=== PATIENT | female | born 1945 | race Caucasian/White ===

== ENCOUNTER → 2017-04-10 | Outpatient (CLI) | payer OTHER ==
--- NOTE | 2017-04-13 13:30 | MG ---
HISTORY: SCREENING Comparison: March 15, 2012 and April 05, 2016 FINDINGS: Bilateral CC and MLO projections of the right and left breast were obtained. Scattered fibroglandula r tissue is seen to be present without significant interval change. No suspicious architectural dist ortion, mass or clustered microcalcifications can be observed to suggest malignancy. No skin thicken ing or nipple retraction is appreciated. No pathological lymphadenopathy can be identified. Benign- appearing calcifications are noted within the right and left breast. IMPRESSION: NO RADIOGRAPHIC EVIDENCE OF MALIGNANCY. ACR CATEGORY 2 - benign findings. FOLLOW-UP EXAM 1 YEAR. Diagnostic CAD was utilized and reviewed. * 0 (ZERO) - ASSESSMENT INCOMPLETE; ADDITIONAL IMAGING IS NEEDED. * 1/1 (ONE) - NEGATIVE. * 2/II (TWO) - BENIGN FINDINGS. * 3/III (THREE) - PROBABLY BENIGN FINDING; SHORT INTERVAL FOLLOW-UP SUGGESTED. * 4/IV (FOUR) - SUSPICIOUS ABNORMALITY; BIOPSY SHOULD BE CONSIDERED. * 5/V - HIGHLY SUSPICIOUS OF MALIGNANCY; BIOPSY SHOULD BE PERFORMED. A NEGATIVE X-RAY REPORT SHOULD NOT DELAY BIOPSY IF A DOMINANT OR CLINICALLY SUSPICIOUS MASS IS PRESENT; 4 TO 8 PERCENT OF CANCERS ARE NOT IDENTIFIED BY X-RAY. A NEGA TIVE REPORT MAY REINFORCE THE CLINICAL IMPRESSION. ADENOSIS AND DENSE BREASTS MAY OBSCURE AN UNDERLY ING NEOPLASM. Reported By:
== END ==
LOC: RAD 10:40
PROVIDERS: ATTEND Obstetrics & Gynecology Obstetrics
DX: Z12.31 Encounter for screening mammogram for malignant neoplasm of breast (principal)
CPT/HCPCS: 77067

== ENCOUNTER 2022-12-06 16:57 | Inpatient (IN) ==
[2022-12-06] MEDS ORDERED: ROCEPHIN VIAL 1 GRAM 1 G in NS 100 ML IV 100 ML IV SCH (17:39)
[2022-12-06] MEDS ORDERED: NS 1,000 ML IV 1,000 ML IV ONE (17:39)
[2022-12-06 18:22] LABS: BASOPHILS # (AUTO) 0.1 X10^3/uL (0.0-0.1); BASOPHILS % (AUTO) 0.3 % (0.2-1.0); EOSINOPHILS % (AUTO) 0.1 % (0.9-2.9); HEMATOCRIT 37.6 % (36.0-47.0); HEMOGLOBIN 12.9 g/dL (12.0-16.0); LYMPHOCYTES # (AUTO) 1.5 X10^3/uL (1.3-2.9); LYMPHOCYTES % (AUTO) 8.2 % (21.0-51.0); MEAN CORPUSCULAR HEMOGLOBIN 31.8 pg (27.0-34.0); MEAN CORPUSCULAR HGB CONC 34.2 g/dL (33.0-35.0); MEAN CORPUSCULAR VOLUME 92.9 fL (80.0-100.0); MEAN PLATELET VOLUME 8.8 fL (7.4-11.0); MONOCYTES # (AUTO) 2.2 x10^3/uL (0.3-0.8); MONOCYTES % (AUTO) 12.2 % (0.0-13.0); NEUTROPHILS % (AUTO) 79.2 % (42.0-75.0); PLATELET COUNT 343 X10^3/uL (150.0-450.0); RED BLOOD COUNT 4.05 X10^6/uL (3.5-5.4); RED CELL DISTRIBUTION WIDTH 12.5 % (11.6-16.5); WHITE BLOOD COUNT 17.7 X10^3/uL (3.6-10.0)
[2022-12-06 18:28] LABS: BILIRUBIN,URINE 1+ (NEGATIVE); BLOOD/HEMOGLOBIN,URINE 1+ (NEGATIVE); GLUCOSE, URINE NEGATIVE (NEGATIVE); KETONES,URINE 4+ (NEGATIVE); LEUKOCYTE ESTERASE ,URINE 1+ (NEGATIVE); NITRITES,URINE NEGATIVE (NEGATIVE); PROTEIN,URINE 3+ (NEGATIVE); UROBILINOGEN,URINE 1+ (NORMAL)
[2022-12-06 18:32] LABS: ALBUMIN 2.7 g/dL (3.4-5.0); CALCIUM 9.3 mg/dL (8.5-10.1); CARBON DIOXIDE 26.3 mmol/L (21-32); COR CA(FOR HYPOALB) 10.3 mg/dL (8.5-10.1); CREATININE 1.15 mg/dL (0.55-1.02); POTASSIUM 4.2 mmol/L (3.5-5.1); TOTAL PROTEIN 7.7 g/dL (6.4-8.2)
[2022-12-06 18:37] LABS: APPEARANCE,URINE HAZY (CLEAR); BACTERIA,URINE TRACE /HPF (NEGATIVE); COLOR,URINE AMBER (YELLOW); RBC,URINE 0-2 /HPF (0-3); SQUAMOUS EPITHELIAL CELL,UR FEW /HPF (NEGATIVE)
[2022-12-06 18:38] LABS: GRANULAR CASTS,URINE MANY /LPF (NEGATIVE); HYALINE CASTS, URINE MODERATE /LPF (NEGATIVE)
[2022-12-06] MEDS ORDERED: NovoLIN R (or HumuLIN R) SUBCUT PRN (19:23)
[2022-12-06] MEDS: SNACK - Diabetic Appropriate PO SCH (19:47)
[2022-12-06] MEDS: ROCEPHIN VIAL 1 GRAM 1 G in NS 100 ML IV 100 ML IV SCH (20:43)
[2022-12-06] MEDS: NS 1,000 ML IV 1,000 ML IV SCH (20:43)
[2022-12-06] MEDS: GLUCOPHAGE XR 24-HR PO SCH (20:43)
[2022-12-06] MEDS: LOPRESSOR TAB 25 MG PO SCH (20:43)
[2022-12-07] MEDS: NS 1,000 ML IV 1,000 ML IV SCH ×4 (02:00→18:04)
[2022-12-07 05:38] LABS: BASOPHILS # (AUTO) 0.1 X10^3/uL (0.0-0.1); BASOPHILS % (AUTO) 0.6 % (0.2-1.0); EOSINOPHILS % (AUTO) 0.3 % (0.9-2.9); HEMATOCRIT 31.6 % (36.0-47.0); HEMOGLOBIN 10.9 g/dL (12.0-16.0); MEAN CORPUSCULAR HEMOGLOBIN 31.8 pg (27.0-34.0); MEAN CORPUSCULAR HGB CONC 34.5 g/dL (33.0-35.0); MEAN CORPUSCULAR VOLUME 92.1 fL (80.0-100.0); MEAN PLATELET VOLUME 8.7 fL (7.4-11.0); MONOCYTES # (AUTO) 2.2 x10^3/uL (0.3-0.8); MONOCYTES % (AUTO) 14.5 % (0.0-13.0); NEUTROPHILS # (AUTO) 10.7 x10^3/uL (2.2-4.8); NEUTROPHILS % (AUTO) 71.6 % (42.0-75.0); PLATELET COUNT 316 X10^3/uL (150.0-450.0); RED BLOOD COUNT 3.43 X10^6/uL (3.5-5.4); RED CELL DISTRIBUTION WIDTH 12.9 % (11.6-16.5)
[2022-12-07 05:46] LABS: ALANINE AMINOTRANSFERASE 16 Units/L (12-78); ALKALINE PHOSPHATASE 63 Units/L (46-116); ASPARTATE AMINO TRANSFERASE 17 Units/L (15-37); BLOOD UREA NITROGEN 12 mg/dL (7-18); CALCIUM 8.1 mg/dL (8.5-10.1); CARBON DIOXIDE 26.3 mmol/L (21-32); CHLORIDE 99 mmol/L (98-107); COR CA(FOR HYPOALB) 9.7 mg/dL (8.5-10.1); COR NA(FOR HYPERGLY) 134 mmol/L (136-145); CREATININE 0.84 mg/dL (0.55-1.02); GLUCOSE 117 mg/dL (65-99); POTASSIUM 3.9 mmol/L (3.5-5.1); SODIUM 134 mmol/L (136-145); TOTAL PROTEIN 6.2 g/dL (6.4-8.2); eGFR NON BLACK RACES > 60 (>60)
[2022-12-07] MEDS: ZYLOPRIM PO SCH (09:48)
[2022-12-07] MEDS: GLUCOPHAGE XR 24-HR PO SCH ×2 (09:49→21:57)
[2022-12-07] MEDS: ASPIRIN EC 81 MG PO SCH (09:49)
[2022-12-07] MEDS: LOPRESSOR TAB 25 MG PO SCH ×2 (09:49→21:57)
[2022-12-07] MEDS: LOVENOX INJ 40 MG SYR SC SCH (09:50)
[2022-12-07] MEDS: SNACK - Diabetic Appropriate PO SCH (19:58)
[2022-12-07] MEDS: ROCEPHIN VIAL 1 GRAM 1 G in NS 100 ML IV 100 ML IV SCH (21:57)
[2022-12-08] MEDS: NS 1,000 ML IV 1,000 ML IV SCH ×3 (03:06→22:14)
[2022-12-08 05:48] LABS: BASOPHILS # (AUTO) 0.2 X10^3/uL (0.0-0.1); BASOPHILS % (AUTO) 1.2 % (0.2-1.0); EOSINOPHILS % (AUTO) 0.1 % (0.9-2.9); HEMATOCRIT 32.2 % (36.0-47.0); HEMOGLOBIN 10.9 g/dL (12.0-16.0); LYMPHOCYTES # (AUTO) 1.7 X10^3/uL (1.3-2.9); LYMPHOCYTES % (AUTO) 11.2 % (21.0-51.0); MEAN CORPUSCULAR HEMOGLOBIN 31.7 pg (27.0-34.0); MEAN CORPUSCULAR VOLUME 93.3 fL (80.0-100.0); MEAN PLATELET VOLUME 9.4 fL (7.4-11.0); MONOCYTES # (AUTO) 2.1 x10^3/uL (0.3-0.8); MONOCYTES % (AUTO) 13.9 % (0.0-13.0); NEUTROPHILS # (AUTO) 10.9 x10^3/uL (2.2-4.8); NEUTROPHILS % (AUTO) 73.6 % (42.0-75.0); PLATELET COUNT 366 X10^3/uL (150.0-450.0); RED BLOOD COUNT 3.45 X10^6/uL (3.5-5.4); RED CELL DISTRIBUTION WIDTH 12.9 % (11.6-16.5); WHITE BLOOD COUNT 14.8 X10^3/uL (3.6-10.0)
[2022-12-08 06:06] LABS: ALANINE AMINOTRANSFERASE 22 Units/L (12-78); ALBUMIN 1.7 g/dL (3.4-5.0); ALKALINE PHOSPHATASE 81 Units/L (46-116); ASPARTATE AMINO TRANSFERASE 34 Units/L (15-37); BLOOD UREA NITROGEN 13 mg/dL (7-18); CALCIUM 7.9 mg/dL (8.5-10.1); CARBON DIOXIDE 24.1 mmol/L (21-32); CHLORIDE 100 mmol/L (98-107); COR CA(FOR HYPOALB) 9.7 mg/dL (8.5-10.1); CREATININE 0.92 mg/dL (0.55-1.02); GLUCOSE 102 mg/dL (65-99); POTASSIUM 3.8 mmol/L (3.5-5.1); SODIUM 135 mmol/L (136-145); TOTAL PROTEIN 6.2 g/dL (6.4-8.2); eGFR NON BLACK RACES > 60 (>60)
[2022-12-08] MEDS ORDERED: CONSULT PHARMACY - POTASSIUM & MAGNESIUM XX SCH (07:00)
[2022-12-08] MEDS: LOPRESSOR TAB 25 MG PO SCH ×2 (08:53→20:54)
[2022-12-08] MEDS: ASPIRIN EC 81 MG PO SCH (08:53)
[2022-12-08] MEDS: GLUCOPHAGE XR 24-HR PO SCH ×2 (08:53→20:53)
[2022-12-08] MEDS: ZYLOPRIM PO SCH (08:53)
[2022-12-08] MEDS: LOVENOX INJ 40 MG SYR SC SCH (08:54)
[2022-12-08] MEDS ORDERED: K-DUR TAB 20 MEQ PO SCH (09:00)
[2022-12-08] MEDS: MAG-OX TAB PO SCH ×2 (09:04→13:51)
[2022-12-08] MEDS ORDERED: TYLENOL 500 MG TAB EXTRA STRENGTH PO ONE (17:00)
[2022-12-08] MEDS ORDERED: PHARMACY CONSULT - VANCOMYCIN XX SCH (17:00)
[2022-12-08] MEDS ORDERED: VANCOMYCIN 1 GRAM PREMIX (ADDVANTAGE) 250 ML IV SCH (18:00)
[2022-12-08] MEDS ORDERED: VANCOMYCIN IV *PREMIX 1 G/200 ML BAG 1 G/200 ML PIGGYBACK IV ONE (18:22)
[2022-12-08] MEDS: SNACK - Diabetic Appropriate PO SCH (20:56)
--- NOTE | 2022-12-08 21:09 | RAD ---
HISTORYFEVERSTUDYCHEST, 1 [id number]/20/2023FINDINGSThe lungs are not well inflated. As a result, there are hypoventilatory changes.But I see no evidence for pneumonia or pleural effusion.Heart size is normal.Bones are unremarkable.IMPRESSION1. No significant abnormalityElectronically signed by: Ronny Chew (Dec 08, 2022 21:07:28)
[2022-12-08] MEDS: ROCEPHIN VIAL 1 GRAM 1 G in NS 100 ML IV 100 ML IV SCH (22:09)
[2022-12-09] MEDS: NS 1,000 ML IV 1,000 ML IV SCH ×3 (02:01→20:38)
[2022-12-09 05:43] LABS: BASOPHILS # (AUTO) 0.1 X10^3/uL (0.0-0.1); BASOPHILS % (AUTO) 0.6 % (0.2-1.0); EOSINOPHILS # (AUTO) 0.1 x10^3/uL (0.0-0.2); EOSINOPHILS % (AUTO) 0.8 % (0.9-2.9); HEMATOCRIT 30.3 % (36.0-47.0); HEMOGLOBIN 10.2 g/dL (12.0-16.0); LYMPHOCYTES # (AUTO) 1.6 X10^3/uL (1.3-2.9); MEAN CORPUSCULAR HEMOGLOBIN 31.2 pg (27.0-34.0); MEAN CORPUSCULAR HGB CONC 33.6 g/dL (33.0-35.0); MEAN CORPUSCULAR VOLUME 92.8 fL (80.0-100.0); MONOCYTES # (AUTO) 1.9 x10^3/uL (0.3-0.8); MONOCYTES % (AUTO) 12.3 % (0.0-13.0); NEUTROPHILS # (AUTO) 11.9 x10^3/uL (2.2-4.8); NEUTROPHILS % (AUTO) 76.3 % (42.0-75.0); PLATELET COUNT 386 X10^3/uL (150.0-450.0); RED BLOOD COUNT 3.27 X10^6/uL (3.5-5.4); RED CELL DISTRIBUTION WIDTH 12.8 % (11.6-16.5); WHITE BLOOD COUNT 15.7 X10^3/uL (3.6-10.0)
[2022-12-09 06:03] LABS: ALANINE AMINOTRANSFERASE 30 Units/L (12-78); ALBUMIN 1.6 g/dL (3.4-5.0); ALKALINE PHOSPHATASE 85 Units/L (46-116); ASPARTATE AMINO TRANSFERASE 34 Units/L (15-37); BLOOD UREA NITROGEN 10 mg/dL (7-18); CALCIUM 8.1 mg/dL (8.5-10.1); CARBON DIOXIDE 24.1 mmol/L (21-32); CHLORIDE 100 mmol/L (98-107); COR NA(FOR HYPERGLY) 134 mmol/L (136-145); CREATININE 0.78 mg/dL (0.55-1.02); GLUCOSE 120 mg/dL (65-99); SODIUM 134 mmol/L (136-145); eGFR NON BLACK RACES > 60 (>60)
[2022-12-09] MEDS: LOPRESSOR TAB 25 MG PO SCH (09:04)
[2022-12-09] MEDS: ZYLOPRIM PO SCH (09:04)
[2022-12-09] MEDS: ASPIRIN EC 81 MG PO SCH (09:04)
[2022-12-09] MEDS: LOVENOX INJ 40 MG SYR SC SCH (09:04)
[2022-12-09] MEDS: GLUCOPHAGE XR 24-HR PO SCH ×2 (09:04→20:25)
[2022-12-09] MEDS: VANCOMYCIN IV *PREMIX 1 G/200 ML BAG 1 G/200 ML PIGGYBACK IV SCH ×2 (09:07→20:25)
[2022-12-09] MEDS: MAG-OX TAB PO SCH ×2 (09:08→20:25)
[2022-12-09] MEDS ORDERED: ZYLOPRIM PO SCH (10:00)
[2022-12-09] MEDS ORDERED: GLUCOPHAGE XR 24-HR PO SCH (10:00)
[2022-12-09] MEDS ORDERED: ASPIRIN EC 81 MG PO SCH (10:00)
[2022-12-09] MEDS: LOPRESSOR TAB 50 MG PO SCH ×2 (11:14→20:25)
[2022-12-09] MEDS: ZESTRIL TAB 40 MG PO SCH (11:14)
[2022-12-09] MEDS: ZOSYN VIAL 3.375 GRAMS 3.375 G in NS 100 ML IV 100 ML IV SCH ×2 (11:15→21:36)
[2022-12-09] MEDS: SNACK - Diabetic Appropriate PO SCH (20:25)
[2022-12-10] MEDS: ZOSYN VIAL 3.375 GRAMS 3.375 G in NS 100 ML IV 100 ML IV SCH ×3 (05:05→22:00)
[2022-12-10] MEDS: NS 1,000 ML IV 1,000 ML IV SCH ×3 (05:05→20:49)
[2022-12-10 07:01] LABS: BASOPHILS # (AUTO) 0.1 X10^3/uL (0.0-0.1); BASOPHILS % (AUTO) 0.9 % (0.2-1.0); EOSINOPHILS # (AUTO) 0.3 x10^3/uL (0.0-0.2); EOSINOPHILS % (AUTO) 2.3 % (0.9-2.9); HEMATOCRIT 29.1 % (36.0-47.0); LYMPHOCYTES # (AUTO) 1.8 X10^3/uL (1.3-2.9); LYMPHOCYTES % (AUTO) 12.9 % (21.0-51.0); MEAN CORPUSCULAR HEMOGLOBIN 31.9 pg (27.0-34.0); MEAN CORPUSCULAR HGB CONC 34.4 g/dL (33.0-35.0); MEAN CORPUSCULAR VOLUME 92.8 fL (80.0-100.0); MEAN PLATELET VOLUME 8.8 fL (7.4-11.0); MONOCYTES # (AUTO) 1.5 x10^3/uL (0.3-0.8); MONOCYTES % (AUTO) 11.1 % (0.0-13.0); NEUTROPHILS % (AUTO) 72.8 % (42.0-75.0); PLATELET COUNT 439 X10^3/uL (150.0-450.0); RED BLOOD COUNT 3.14 X10^6/uL (3.5-5.4); RED CELL DISTRIBUTION WIDTH 12.7 % (11.6-16.5); WHITE BLOOD COUNT 13.7 X10^3/uL (3.6-10.0)
[2022-12-10 07:16] LABS: ALANINE AMINOTRANSFERASE 33 Units/L (12-78); ALBUMIN 1.5 g/dL (3.4-5.0); ALKALINE PHOSPHATASE 85 Units/L (46-116); ASPARTATE AMINO TRANSFERASE 36 Units/L (15-37); BLOOD UREA NITROGEN 12 mg/dL (7-18); CALCIUM 8.4 mg/dL (8.5-10.1); CARBON DIOXIDE 25.5 mmol/L (21-32); CHLORIDE 100 mmol/L (98-107); COR CA(FOR HYPOALB) 10.4 mg/dL (8.5-10.1); CREATININE 0.76 mg/dL (0.55-1.02); GLUCOSE 104 mg/dL (65-99); POTASSIUM 3.8 mmol/L (3.5-5.1); SODIUM 135 mmol/L (136-145); TOTAL PROTEIN 5.9 g/dL (6.4-8.2); eGFR NON BLACK RACES > 60 (>60)
[2022-12-10 07:19] LABS: CREATININE 0.7 mg/dL (0.55-1.02); VANCOMYCIN,TROUGH 11.2 ug/mL (15-20)
[2022-12-10] MEDS ORDERED: PHARMACY COMMENT IV NR (08:00)
[2022-12-10] MEDS: LOPRESSOR TAB 50 MG PO SCH ×2 (08:32→20:48)
[2022-12-10] MEDS: GLUCOPHAGE XR 24-HR PO SCH ×2 (08:32→20:47)
[2022-12-10] MEDS: LOVENOX INJ 40 MG SYR SC SCH (08:32)
[2022-12-10] MEDS: ZESTRIL TAB 40 MG PO SCH (08:32)
[2022-12-10] MEDS: ZYLOPRIM PO SCH (08:33)
[2022-12-10] MEDS: ASPIRIN EC 81 MG PO SCH (08:33)
[2022-12-10] MEDS: MAG-OX TAB PO SCH ×2 (08:33→20:49)
[2022-12-10] MEDS: VANCOMYCIN IV *PREMIX 1 G/200 ML BAG 1 G/200 ML PIGGYBACK IV SCH ×2 (08:48→20:48)
[2022-12-10] MEDS: SNACK - Diabetic Appropriate PO SCH (20:49)
[2022-12-11] MEDS: NS 1,000 ML IV 1,000 ML IV SCH ×3 (02:21→17:30)
[2022-12-11] MEDS: ZOSYN VIAL 3.375 GRAMS 3.375 G in NS 100 ML IV 100 ML IV SCH ×3 (05:42→21:19)
[2022-12-11 06:25] LABS: BASOPHILS # (AUTO) 0.1 X10^3/uL (0.0-0.1); EOSINOPHILS # (AUTO) 0.5 x10^3/uL (0.0-0.2); EOSINOPHILS % (AUTO) 3.8 % (0.9-2.9); HEMATOCRIT 30.1 % (36.0-47.0); HEMOGLOBIN 10.1 g/dL (12.0-16.0); LYMPHOCYTES # (AUTO) 1.6 X10^3/uL (1.3-2.9); LYMPHOCYTES % (AUTO) 13.6 % (21.0-51.0); MEAN CORPUSCULAR HEMOGLOBIN 31.2 pg (27.0-34.0); MEAN CORPUSCULAR HGB CONC 33.7 g/dL (33.0-35.0); MEAN CORPUSCULAR VOLUME 92.5 fL (80.0-100.0); MEAN PLATELET VOLUME 8.3 fL (7.4-11.0); MONOCYTES # (AUTO) 1.4 x10^3/uL (0.3-0.8); MONOCYTES % (AUTO) 11.6 % (0.0-13.0); NEUTROPHILS # (AUTO) 8.5 x10^3/uL (2.2-4.8); PLATELET COUNT 524 X10^3/uL (150.0-450.0); RED BLOOD COUNT 3.26 X10^6/uL (3.5-5.4); WHITE BLOOD COUNT 12.1 X10^3/uL (3.6-10.0)
[2022-12-11 06:43] LABS: ALANINE AMINOTRANSFERASE 60 Units/L (12-78); ALBUMIN 1.4 g/dL (3.4-5.0); ALKALINE PHOSPHATASE 103 Units/L (46-116); ASPARTATE AMINO TRANSFERASE 73 Units/L (15-37); BLOOD UREA NITROGEN 12 mg/dL (7-18); CARBON DIOXIDE 26.8 mmol/L (21-32); CHLORIDE 102 mmol/L (98-107); COR NA(FOR HYPERGLY) 136 mmol/L (136-145); CREATININE 0.79 mg/dL (0.55-1.02); GLUCOSE 117 mg/dL (65-99); POTASSIUM 3.8 mmol/L (3.5-5.1); SODIUM 136 mmol/L (136-145); TOTAL PROTEIN 5.9 g/dL (6.4-8.2); eGFR NON BLACK RACES > 60 (>60)
[2022-12-11 06:50] LABS: CALCIUM 8.3 mg/dL (8.5-10.1); COR CA(FOR HYPOALB) 10.4 mg/dL (8.5-10.1)
[2022-12-11] MEDS: LOVENOX INJ 40 MG SYR SC SCH (08:59)
[2022-12-11] MEDS: VANCOMYCIN IV *PREMIX 1 G/200 ML BAG 1 G/200 ML PIGGYBACK IV SCH ×2 (08:59→21:19)
[2022-12-11] MEDS: ASPIRIN EC 81 MG PO SCH (09:01)
[2022-12-11] MEDS: GLUCOPHAGE XR 24-HR PO SCH ×3 (09:01→21:29)
[2022-12-11] MEDS: ZYLOPRIM PO SCH (09:01)
[2022-12-11] MEDS: MAG-OX TAB PO SCH ×2 (09:01→21:28)
[2022-12-11] MEDS: ZESTRIL TAB 40 MG PO SCH (09:01)
[2022-12-11] MEDS: LOPRESSOR TAB 50 MG PO SCH ×3 (09:01→21:30)
[2022-12-11] MEDS ORDERED: PHARMACY COMMENT IV ONE (19:30)
[2022-12-11] MEDS ORDERED: CONSULT PHARMACY - POTASSIUM & MAGNESIUM XX SCH (21:00)
[2022-12-11] MEDS: SNACK - Diabetic Appropriate PO SCH (21:19)
[2022-12-12] MEDS: NS 1,000 ML IV 1,000 ML IV SCH ×4 (02:00→18:06)
[2022-12-12] MEDS: ZOSYN VIAL 3.375 GRAMS 3.375 G in NS 100 ML IV 100 ML IV SCH ×3 (05:23→21:13)
[2022-12-12 06:15] LABS: BASOPHILS # (AUTO) 0.1 X10^3/uL (0.0-0.1); BASOPHILS % (AUTO) 0.7 % (0.2-1.0); EOSINOPHILS # (AUTO) 0.5 x10^3/uL (0.0-0.2); EOSINOPHILS % (AUTO) 4.6 % (0.9-2.9); HEMOGLOBIN 9.7 g/dL (12.0-16.0); LYMPHOCYTES # (AUTO) 1.9 X10^3/uL (1.3-2.9); LYMPHOCYTES % (AUTO) 16.7 % (21.0-51.0); MEAN CORPUSCULAR HGB CONC 33.5 g/dL (33.0-35.0); MEAN CORPUSCULAR VOLUME 92.7 fL (80.0-100.0); MEAN PLATELET VOLUME 8.3 fL (7.4-11.0); MONOCYTES # (AUTO) 1.3 x10^3/uL (0.3-0.8); NEUTROPHILS # (AUTO) 7.4 x10^3/uL (2.2-4.8); PLATELET COUNT 520 X10^3/uL (150.0-450.0); RED BLOOD COUNT 3.13 X10^6/uL (3.5-5.4); RED CELL DISTRIBUTION WIDTH 12.8 % (11.6-16.5); WHITE BLOOD COUNT 11.1 X10^3/uL (3.6-10.0)
[2022-12-12 06:24] LABS: ALANINE AMINOTRANSFERASE 37 Units/L (12-78); ALBUMIN 1.4 g/dL (3.4-5.0); ALKALINE PHOSPHATASE 94 Units/L (46-116); ASPARTATE AMINO TRANSFERASE 33 Units/L (15-37); BLOOD UREA NITROGEN 11 mg/dL (7-18); CALCIUM 8.2 mg/dL (8.5-10.1); CARBON DIOXIDE 25.3 mmol/L (21-32); CHLORIDE 103 mmol/L (98-107); COR CA(FOR HYPOALB) 10.3 mg/dL (8.5-10.1); CREATININE 0.78 mg/dL (0.55-1.02); GLUCOSE 99 mg/dL (65-99); MAGNESIUM 1.7 mg/dL (2.0-2.9); POTASSIUM 3.6 mmol/L (3.5-5.1); SODIUM 136 mmol/L (136-145); TOTAL PROTEIN 5.8 g/dL (6.4-8.2); eGFR NON BLACK RACES > 60 (>60)
[2022-12-12 08:18] LABS: CREATININE 0.71 mg/dL (0.55-1.02); VANCOMYCIN,TROUGH 15.4 ug/mL (15-20)
[2022-12-12] MEDS: GLUCOPHAGE XR 24-HR PO SCH ×2 (08:54→21:12)
[2022-12-12] MEDS: VANCOMYCIN IV *PREMIX 1 G/200 ML BAG 1 G/200 ML PIGGYBACK IV SCH ×2 (08:54→21:13)
[2022-12-12] MEDS: ZYLOPRIM PO SCH (08:54)
[2022-12-12] MEDS: LOPRESSOR TAB 50 MG PO SCH ×2 (08:54→21:11)
[2022-12-12] MEDS: ZESTRIL TAB 40 MG PO SCH (08:54)
[2022-12-12] MEDS: MAG-OX TAB PO SCH ×2 (08:54→21:12)
[2022-12-12] MEDS: ASPIRIN EC 81 MG PO SCH (08:54)
[2022-12-12] MEDS: LOVENOX INJ 40 MG SYR SC SCH (08:54)
[2022-12-12] MEDS: MAGNESIUM SULFATE 1 GRAM/100 mL PREMIX 1 G/100 ML BAG IV SCH ×2 (10:29→11:20)
[2022-12-12] MEDS: SNACK - Diabetic Appropriate PO SCH (22:07)
[2022-12-13] MEDS ORDERED: APRESOLINE INJ 20 MG VIAL IVP ONE (01:31)
[2022-12-13] MEDS: NS 1,000 ML IV 1,000 ML IV SCH ×5 (02:01→22:25)
[2022-12-13] MEDS: ZOSYN VIAL 3.375 GRAMS 3.375 G in NS 100 ML IV 100 ML IV SCH ×3 (05:31→21:13)
[2022-12-13] MEDS: ZYLOPRIM PO SCH ×2 (08:49→09:13)
[2022-12-13] MEDS: LOVENOX INJ 40 MG SYR SC SCH (08:50)
[2022-12-13] MEDS: VANCOMYCIN IV *PREMIX 1 G/200 ML BAG 1 G/200 ML PIGGYBACK IV SCH (08:51)
[2022-12-13] MEDS ORDERED: LEVAQUIN TAB 500 MG PO SCH (09:00)
[2022-12-13] MEDS ORDERED: TOPROL XL PO ONE (09:07)
[2022-12-13] MEDS ORDERED: LEVAQUIN TAB 500 MG ONE (09:07)
[2022-12-13] MEDS: TOPROL XL PO SCH (09:12)
[2022-12-13] MEDS: GLUCOPHAGE XR 24-HR PO SCH ×2 (09:12→22:26)
[2022-12-13] MEDS: ASPIRIN EC 81 MG PO SCH (09:13)
[2022-12-13] MEDS: MAG-OX TAB PO SCH ×2 (09:13→22:26)
[2022-12-13] MEDS: ZESTRIL TAB 40 MG PO SCH (09:13)
[2022-12-13] MEDS ORDERED: NORVASC TAB 5 MG ONE (15:08)
[2022-12-13] MEDS: NORVASC TAB 5 MG PO SCH ×2 (15:17→16:30)
[2022-12-13] MEDS: SNACK - Diabetic Appropriate PO SCH (22:26)
[2022-12-14] MEDS: NS 1,000 ML IV 1,000 ML IV SCH ×3 (02:04→10:32)
[2022-12-14] MEDS: ZOSYN VIAL 3.375 GRAMS 3.375 G in NS 100 ML IV 100 ML IV SCH ×2 (05:35→14:22)
[2022-12-14 06:31] LABS: BASOPHILS # (AUTO) 0.1 X10^3/uL (0.0-0.1); BASOPHILS % (AUTO) 1.2 % (0.2-1.0); EOSINOPHILS # (AUTO) 0.5 x10^3/uL (0.0-0.2); EOSINOPHILS % (AUTO) 4.8 % (0.9-2.9); HEMATOCRIT 28.4 % (36.0-47.0); LYMPHOCYTES # (AUTO) 1.8 X10^3/uL (1.3-2.9); LYMPHOCYTES % (AUTO) 17.4 % (21.0-51.0); MEAN CORPUSCULAR HEMOGLOBIN 32.1 pg (27.0-34.0); MEAN CORPUSCULAR HGB CONC 35.1 g/dL (33.0-35.0); MEAN CORPUSCULAR VOLUME 91.4 fL (80.0-100.0); MEAN PLATELET VOLUME 8.1 fL (7.4-11.0); MONOCYTES # (AUTO) 1.1 x10^3/uL (0.3-0.8); MONOCYTES % (AUTO) 10.1 % (0.0-13.0); NEUTROPHILS % (AUTO) 66.5 % (42.0-75.0); PLATELET COUNT 614 X10^3/uL (150.0-450.0); RED BLOOD COUNT 3.11 X10^6/uL (3.5-5.4); RED CELL DISTRIBUTION WIDTH 12.9 % (11.6-16.5); WHITE BLOOD COUNT 10.6 X10^3/uL (3.6-10.0)
[2022-12-14 06:59] LABS: BLOOD UREA NITROGEN 10 mg/dL (7-18); CALCIUM 8.7 mg/dL (8.5-10.1); CARBON DIOXIDE 23.3 mmol/L (21-32); CHLORIDE 102 mmol/L (98-107); GLUCOSE 97 mg/dL (65-99); POTASSIUM 3.6 mmol/L (3.5-5.1); SODIUM 137 mmol/L (136-145); eGFR NON BLACK RACES > 60 (>60)
[2022-12-14 07:36] LABS: ALANINE AMINOTRANSFERASE 30 Units/L (12-78); ALBUMIN 1.7 g/dL (3.4-5.0); ALKALINE PHOSPHATASE 102 Units/L (46-116); ASPARTATE AMINO TRANSFERASE 30 Units/L (15-37); COR CA(FOR HYPOALB) 10.5 mg/dL (8.5-10.1); MAGNESIUM 1.8 mg/dL (2.0-2.9); TOTAL PROTEIN 6.1 g/dL (6.4-8.2)
[2022-12-14] MEDS ORDERED: TOPROL XL PO ONE (07:51)
[2022-12-14] MEDS ORDERED: CONSULT PHARMACY - POTASSIUM & MAGNESIUM XX SCH (08:00)
[2022-12-14] MEDS: LOVENOX INJ 40 MG SYR SC SCH (08:01)
[2022-12-14] MEDS: ZYLOPRIM PO SCH (08:02)
[2022-12-14] MEDS: ZESTRIL TAB 40 MG PO SCH (08:02)
[2022-12-14] MEDS: GLUCOPHAGE XR 24-HR PO SCH (08:02)
[2022-12-14] MEDS: TOPROL XL PO SCH (08:02)
[2022-12-14] MEDS: ASPIRIN EC 81 MG PO SCH (08:03)
[2022-12-14] MEDS: NORVASC TAB 5 MG PO SCH (08:03)
[2022-12-14] MEDS: MAG-OX TAB PO SCH (08:03)
[2022-12-14] MEDS: MAGNESIUM SULFATE 1 GRAM/100 mL PREMIX 1 G/100 ML BAG IV SCH ×2 (08:10→10:15)
[2022-12-14] MEDS ORDERED: K-DUR TAB 20 MEQ PO SCH (09:00)
[2022-12-14 12:36] VITALS: BP 141/69; PULSE 80; RESP 18; TEMP 97.8; O2SAT 97
== END 2022-12-14 13:59 | disposition swing bed (61) | DRG 690 ==
LOC: MED/SURG
PROVIDERS: ADMIT Obstetrics & Gynecology Obstetrics; ATTEND Obstetrics & Gynecology Obstetrics
DX: Z91.14 Patient's other noncompliance with medication regimen; I10 Essential (primary) hypertension; E86.0 Dehydration; N39.0 Urinary tract infection, site not specified; R53.1 Weakness; R26.89 Other abnormalities of gait and mobility; R41.82 Altered mental status, unspecified; I25.10 Atherosclerotic heart disease of native coronary artery without angina pectoris; E11.65 Type 2 diabetes mellitus with hyperglycemia; E87.1 Hypo-osmolality and hyponatremia

== ENCOUNTER 2022-12-14 15:02 | Inpatient (IN) ==
[2022-12-14] MEDS ORDERED: NovoLIN R (or HumuLIN R) SUBCUT PRN (15:20)
[2022-12-14] MEDS: NS 1,000 ML IV 1,000 ML IV SCH (17:15)
[2022-12-14] MEDS ORDERED: SNACK - Diabetic Appropriate PO SCH (20:00)
[2022-12-14] MEDS: SNACK - Diabetic Appropriate PO SCH (20:59)
[2022-12-14] MEDS: GLUCOPHAGE XR 24-HR PO SCH (21:00)
[2022-12-14] MEDS: MAG-OX TAB PO SCH (21:01)
[2022-12-14] MEDS: ZOSYN VIAL 3.375 GRAMS 3.375 G in NS 100 ML IV 100 ML IV SCH (21:34)
[2022-12-15] MEDS: NS 1,000 ML IV 1,000 ML IV SCH ×3 (02:55→21:11)
[2022-12-15] MEDS: ZOSYN VIAL 3.375 GRAMS 3.375 G in NS 100 ML IV 100 ML IV SCH ×3 (05:02→21:12)
[2022-12-15 06:54] LABS: BASOPHILS # (AUTO) 0.1 X10^3/uL (0.0-0.1); BASOPHILS % (AUTO) 0.5 % (0.2-1.0); EOSINOPHILS # (AUTO) 0.6 x10^3/uL (0.0-0.2); EOSINOPHILS % (AUTO) 5.4 % (0.9-2.9); HEMATOCRIT 28.1 % (36.0-47.0); HEMOGLOBIN 9.9 g/dL (12.0-16.0); LYMPHOCYTES # (AUTO) 1.7 X10^3/uL (1.3-2.9); LYMPHOCYTES % (AUTO) 16.1 % (21.0-51.0); MEAN CORPUSCULAR HEMOGLOBIN 32.3 pg (27.0-34.0); MEAN CORPUSCULAR HGB CONC 35.2 g/dL (33.0-35.0); MEAN CORPUSCULAR VOLUME 91.6 fL (80.0-100.0); MEAN PLATELET VOLUME 8.3 fL (7.4-11.0); MONOCYTES % (AUTO) 9.2 % (0.0-13.0); NEUTROPHILS # (AUTO) 7.1 x10^3/uL (2.2-4.8); NEUTROPHILS % (AUTO) 68.8 % (42.0-75.0); PLATELET COUNT 634 X10^3/uL (150.0-450.0); RED BLOOD COUNT 3.06 X10^6/uL (3.5-5.4); RED CELL DISTRIBUTION WIDTH 12.8 % (11.6-16.5); WHITE BLOOD COUNT 10.3 X10^3/uL (3.6-10.0)
[2022-12-15 07:00] LABS: ALANINE AMINOTRANSFERASE 26 Units/L (12-78); ALBUMIN 1.7 g/dL (3.4-5.0); ALKALINE PHOSPHATASE 93 Units/L (46-116); ASPARTATE AMINO TRANSFERASE 31 Units/L (15-37); BLOOD UREA NITROGEN 7 mg/dL (7-18); CALCIUM 8.2 mg/dL (8.5-10.1); CARBON DIOXIDE 26.1 mmol/L (21-32); CHLORIDE 100 mmol/L (98-107); CREATININE 0.67 mg/dL (0.55-1.02); GLUCOSE 104 mg/dL (65-99); POTASSIUM 3.6 mmol/L (3.5-5.1); SODIUM 135 mmol/L (136-145); eGFR NON BLACK RACES > 60 (>60)
[2022-12-15] MEDS ORDERED: TOPROL XL PO ONE (09:02)
[2022-12-15] MEDS: LOVENOX INJ 40 MG SYR SC SCH (09:08)
[2022-12-15] MEDS: ZYLOPRIM PO SCH (09:09)
[2022-12-15] MEDS: ZESTRIL TAB 40 MG PO SCH (09:09)
[2022-12-15] MEDS: ASPIRIN EC 81 MG PO SCH (09:09)
[2022-12-15] MEDS: TOPROL XL PO SCH (09:09)
[2022-12-15] MEDS: MAG-OX TAB PO SCH ×2 (09:10→20:38)
[2022-12-15] MEDS: GLUCOPHAGE XR 24-HR PO SCH ×2 (09:10→20:38)
[2022-12-15] MEDS: NORVASC TAB 5 MG PO SCH (09:11)
[2022-12-15] MEDS: WELLBUTRIN XL 150 MG (DAILY) PO SCH (10:30)
--- NOTE | 2022-12-15 12:07 | PT/OTEVAL ---
PT/OT OBJECTIVES - HISTORY Prescription: OT Consult Diagnosis: Klebsiella, UTI, Pneumonia, Weakness Precautions: Fall risk, pain PMH: HTN, Diabetes, Chest Pain, Leaking Heart Valve, Cholecystectomy, Hysterectomy Prior Level of Function: Independent Other: Pt states that her family is currently staying with her in her home. She lives in a 1 story with ramp. Family is there to assist in providing care as needed. Pt has been primarily staying in bed. Moves to chair with very minimal ambulation being performed. Pt states it is related to her pain. Per family pt is not eating as much and is also not compliant in taking her medications. Family has been having to provide physical assistance to get into/out of bed and into a chair. Pt has a Hospital Bed, Shower Chair, FWW, BSC - COGNITION Mental Status: Oriented, Name Communication Status: Verbal Ability to Follow Directions: 2 Step - PAIN Generalized Pain Scale: No Pain Comments: Neck, Back, L Knee, B Hands, B Oblique Region of Trunk - BED MOBILITY Rolling: Minimal Scooting: Minimal - TRANSFERS Supine to Sit: Maximum Sit to Stand: Minimal Sit or Stand Pivot: Minimal Toileting comment: Pt has a indwelling cath - ADL'S Feeding: Setup Grooming: Minimum Lower Body ADL: Maximum Toileting Comment: Pt has a indwelling cath and did not use the commode - NEUROMOTOR/SENSATION Osavldo. Upper Ext Sensation: WFL Coordination: WFL - HAND DOMINANCE Extremity Function: Hand Dominance: Right - ROM Bilateral UE ROM: WFL Muscle Tone: WFL - STRENGTH Bilateral UE Strength Number: 3 - TREATMENT Date: 12/15/22 Time: 10:40 Treatment Type: Evaluation - TOTAL TREATMENT TIME Total Time: 60 - EXIT DISPOSITION Exit Position: CHAIR Call light in reach: Yes PT/OT ASSESSMENT - PT Problem List: Other - OT Problem List: Decreased Mobility ADL's, Decreased Safety Aware, Decreased Dressing, Decreased Bathing, Decreased Grooming, Decreased UE Strength - OT GOALS Detention Goals Days: 20 Mobility for ADL's: Pt to increase (I) with ADL toilet transfers to supv A with AE PRN Safety Awareness: Pt to improve safety awareness with ADL functional transfers. Dressing: Pt to improve LB dressing skills to touch A Bathing: Pt to improve overall bathing with touch A Grooming: Pt to increase grooming skills to set up A. Upper Ext. Strength/Use: Pt to improve UB strength to 4/5 Short Term Goals Days: 10 Mobility for ADL's: Pt to increase (I) with supine to sit with supv A Dressing: Pt to improve LB dressing skills to min A Bathing: Pt to improve overall bathing with min A - PATIENT GOALS Patient/Family Goals: To go home Goals Discussed with Patient/Family: Yes Rehabilitation Potential: Good to meet stated goals Justification for Potential: Facilitate highest level of function and safe discharge planning. Weakness and Barriers: None - PLAN Suggested Treatment Plan: Therapeutic Activity, Self Care Training, Neuro Re- education, Therapeutic Ex with HEP, Patient Education - FREQUENCY AND DURATION PT: - OT: Pt to be seen 3x a week for 20 days Expected Continuation of Care at Discharge: Determined on Progress
[2022-12-15] MEDS: SNACK - Diabetic Appropriate PO SCH (20:38)
[2022-12-16] MEDS: NS 1,000 ML IV 1,000 ML IV SCH ×3 (02:01→16:38)
[2022-12-16] MEDS: ZOSYN VIAL 3.375 GRAMS 3.375 G in NS 100 ML IV 100 ML IV SCH ×3 (05:34→21:42)
[2022-12-16 06:03] LABS: BASOPHILS # (AUTO) 0.1 X10^3/uL (0.0-0.1); BASOPHILS % (AUTO) 1.2 % (0.2-1.0); EOSINOPHILS # (AUTO) 0.6 x10^3/uL (0.0-0.2); EOSINOPHILS % (AUTO) 7.1 % (0.9-2.9); HEMATOCRIT 28.1 % (36.0-47.0); LYMPHOCYTES # (AUTO) 1.9 X10^3/uL (1.3-2.9); LYMPHOCYTES % (AUTO) 22.6 % (21.0-51.0); MEAN CORPUSCULAR HEMOGLOBIN 32.4 pg (27.0-34.0); MEAN CORPUSCULAR HGB CONC 35.5 g/dL (33.0-35.0); MEAN CORPUSCULAR VOLUME 91.4 fL (80.0-100.0); MEAN PLATELET VOLUME 8.3 fL (7.4-11.0); MONOCYTES % (AUTO) 11.3 % (0.0-13.0); NEUTROPHILS # (AUTO) 4.9 x10^3/uL (2.2-4.8); NEUTROPHILS % (AUTO) 57.8 % (42.0-75.0); PLATELET COUNT 640 X10^3/uL (150.0-450.0); RED BLOOD COUNT 3.07 X10^6/uL (3.5-5.4); RED CELL DISTRIBUTION WIDTH 13.2 % (11.6-16.5); WHITE BLOOD COUNT 8.5 X10^3/uL (3.6-10.0)
[2022-12-16 06:33] LABS: ALANINE AMINOTRANSFERASE 24 Units/L (12-78); ALBUMIN 1.7 g/dL (3.4-5.0); ALKALINE PHOSPHATASE 75 Units/L (46-116); ASPARTATE AMINO TRANSFERASE 26 Units/L (15-37); BLOOD UREA NITROGEN 6 mg/dL (7-18); CALCIUM 8.2 mg/dL (8.5-10.1); CARBON DIOXIDE 28.6 mmol/L (21-32); CHLORIDE 101 mmol/L (98-107); CREATININE 0.67 mg/dL (0.55-1.02); GLUCOSE 110 mg/dL (65-99); POTASSIUM 3.3 mmol/L (3.5-5.1); SODIUM 137 mmol/L (136-145); TOTAL PROTEIN 5.8 g/dL (6.4-8.2); eGFR NON BLACK RACES > 60 (>60)
[2022-12-16] MEDS ORDERED: CONSULT PHARMACY - POTASSIUM & MAGNESIUM XX SCH (07:00)
[2022-12-16] MEDS ORDERED: TOPROL XL PO ONE (07:57)
[2022-12-16] MEDS: LOVENOX INJ 40 MG SYR SC SCH (08:51)
[2022-12-16] MEDS ORDERED: K-DUR TAB 20 MEQ PO SCH (09:00)
--- NOTE | 2022-12-16 09:41 | PT/OTEVAL ---
PT/OT OBJECTIVES - HISTORY Prescription: PT Consult Diagnosis: UTI Precautions: Fall Risk, Decreased Cognition/Decreased Safety Awareness PMH: HTN, Diabetes, Chest Pain, Leaking Heart Valve, Cholecystectomy, Hysterectomy Prior Level of Function: Assistance Required Other: Per patient and family report (son and daughter in law)- Family is currently staying with patient in her home (1 story with ramp to enter) to assist in providing care as needed. Pt reports primarily staying in bed to chair with very minimal ambulation being performed at this time. Pt states it is related to her pain. Family does report that pt is not eating much and is also not compliant in taking her medications. Family has been having to provide physical assistance to get into/out of bed and into a chair. DME: Hospital Bed, Shower Chair, FWW, BSC History of Present Illness: Pt is a 77 year old female who has been referred for swing bed admission for IV antibiotics due to UTI. Pt was initially hospitalized with UTI- treated and discharged home and then returned with continued UTI and family reported that pt was noncompliant with taking medications. Pt has also had a significant functional decline over the last several weeks. She went from being independent and driving to requiring physical assistance from her family. - COGNITION Mental Status: Alert, Name, Confused, Decreased Safety Awarenes Communication Status: Verbal Ability to Follow Directions: 1 Step - PAIN Generalized Pain Scale: No Pain Comments: No reports of pain at time of eval; however, pt with hx of chronic pain. - BED MOBILITY Rolling: Minimal - TRANSFERS Supine to Sit: Maximum Sit to Stand: Minimal Sit to Stand Comment: Cues for hand placement and proper sequencing Sit or Stand Pivot: Minimal Sit or Stand Pivot Comment: Cues for hand placement and proper sequencing with FWW Safety (requires cues for:): Hand Placement Precaution - NEUROMOTOR/SENSATION Osvaldo. Lower Ext Sensation: WFL Coordination: WFL - HAND DOMINANCE Extremity Function: Hand Dominance: Right - ROM Right LE Muscle Tone: WFL Left LE Muscle Tone: WFL - STRENGTH Right LE Strength Number: 3 Other comment: 3+/5 Left LE Strength Number: 3 Other comment: 3+/5 - GAIT Pt. ambulates how many feet?: 5 Amount of Assistance Required: Minimal Type of Assistive Device: Rolling Walker Comments: FWW - TREATMENT Date: 12/15/22 Time: 10:20 Treatment Type: Evaluation - TOTAL TREATMENT TIME Total Time: 60 - POST ASSESSMENT Post Assessment Comment: Pt was found supine in bed in room initially with family present and agreeable to participation in PT services. Family stepped out during evaluation. Pt was able to communicate verbally but was talking about the return of [place] and [place] and it was difficult to redirect patient to task without max cues and increased time. Pt required max assist for transition from supine to sitting EOB. Pt able to tolerate sitting EOB with UE assist. Pt then required min assist for functional transfers with mod/max cues for proper hand placement and sequencing with FWW. Pt able to ambulate 5ft with FWW this date before fatigue. Pt was agreeable to sit in recliner chair this date. Pt would benefit from continued PT services to address remaining deficits and facilitate highest level of function and safe discharge planning. - EXIT DISPOSITION Exit Position: CHAIR Call light in reach: Yes Comments: Family present PT/OT ASSESSMENT - PT Problem List: Decreased Bed Mobility, Decreased Transfers, Decreased Gait, Decreased Balance, Decreased Safety, Decreased LE Strength - PT GOALS Short Term Goals Days: 10 Mobility: Pt will perform bed mobility tasks with min assist Transfers: Pt will perform functional transfers with supervision Gait: Pt will ambulate 75ft with FWW with touch assist Balance: Pt will increase static standing balance to good- Mcfp Goals Days: 20 Mobility: Pt will perform bed mobility tasks with mod I Transfers: Pt will perform functional transfers with mod I Gait: Pt will ambulate 200ft with LRAD with supervision Balance: Pt will increase dynamic standing balance to fair+ ROM/Strength: Pt will increase BLE strength to 5/5 - OT GOALS Mcfp Goals Days: 20 Mobility for ADL's: Pt to increase (I) with ADL toilet transfers to supv A with AE PRN Safety Awareness: Pt to improve safety awareness with ADL functional transfers. Dressing: Pt to improve LB dressing skills to touch A Bathing: Pt to improve overall bathing with touch A Grooming: Pt to increase grooming skills to set up A. Upper Ext. Strength/Use: Pt to improve UB strength to 4/5 Short Term Goals Days: 10 Mobility for ADL's: Pt to increase (I) with supine to sit with supv A Dressing: Pt to improve LB dressing skills to min A Bathing: Pt to improve overall bathing with min A - PATIENT GOALS Patient/Family Goals: "I need to get home" Goals Discussed with Patient/Family: Yes Rehabilitation Potential: Good to meet stated goals Justification for Potential: Facilitate highest level of function and safe discharge planning Weakness and Barriers: Cognitive Barrier If yes, explain: Periods of confusion requiring redirection to task and cues for safety - PLAN Suggested Treatment Plan: Bed Mobility Training, Therapeutic Activity, Gait Training, Neuro Re-education, Therapeutic Ex with HEP, Patient Education - FREQUENCY AND DURATION PT: 5x per week x 20 days Expected Continuation of Care at Discharge: Home Health Comments: Family is requesting hospice upon discharge.
[2022-12-16 10:38] VITALS: BMI 29.0
[2022-12-16] MEDS: TOPROL XL PO SCH (10:57)
[2022-12-16] MEDS: MAG-OX TAB PO SCH ×3 (10:57→21:42)
[2022-12-16] MEDS: NORVASC TAB 5 MG PO SCH (10:58)
[2022-12-16] MEDS: ASPIRIN EC 81 MG PO SCH (10:58)
[2022-12-16] MEDS: GLUCOPHAGE XR 24-HR PO SCH ×2 (10:58→21:42)
[2022-12-16] MEDS: WELLBUTRIN XL 150 MG (DAILY) PO SCH (10:59)
[2022-12-16] MEDS: ZYLOPRIM PO SCH (10:59)
[2022-12-16] MEDS: ZESTRIL TAB 40 MG PO SCH (10:59)
[2022-12-16] MEDS: SNACK - Diabetic Appropriate PO SCH (21:41)
[2022-12-17 06:31] LABS: BASOPHILS # (AUTO) 0.1 X10^3/uL (0.0-0.1); BASOPHILS % (AUTO) 1.2 % (0.2-1.0); EOSINOPHILS # (AUTO) 0.5 x10^3/uL (0.0-0.2); EOSINOPHILS % (AUTO) 4.8 % (0.9-2.9); HEMOGLOBIN 10.9 g/dL (12.0-16.0); LYMPHOCYTES # (AUTO) 2.6 X10^3/uL (1.3-2.9); LYMPHOCYTES % (AUTO) 27.6 % (21.0-51.0); MEAN CORPUSCULAR HEMOGLOBIN 30.9 pg (27.0-34.0); MEAN CORPUSCULAR HGB CONC 34.1 g/dL (33.0-35.0); MEAN CORPUSCULAR VOLUME 90.5 fL (80.0-100.0); MEAN PLATELET VOLUME 7.9 fL (7.4-11.0); MONOCYTES # (AUTO) 0.9 x10^3/uL (0.3-0.8); MONOCYTES % (AUTO) 9.6 % (0.0-13.0); NEUTROPHILS # (AUTO) 5.4 x10^3/uL (2.2-4.8); NEUTROPHILS % (AUTO) 56.8 % (42.0-75.0); PLATELET COUNT 710 X10^3/uL (150.0-450.0); RED BLOOD COUNT 3.53 X10^6/uL (3.5-5.4); RED CELL DISTRIBUTION WIDTH 12.8 % (11.6-16.5); WHITE BLOOD COUNT 9.5 X10^3/uL (3.6-10.0)
[2022-12-17 06:41] LABS: ALANINE AMINOTRANSFERASE 24 Units/L (12-78); ALBUMIN 2.1 g/dL (3.4-5.0); ALKALINE PHOSPHATASE 78 Units/L (46-116); ASPARTATE AMINO TRANSFERASE 25 Units/L (15-37); BLOOD UREA NITROGEN 7 mg/dL (7-18); CALCIUM 8.9 mg/dL (8.5-10.1); CARBON DIOXIDE 30.6 mmol/L (21-32); CHLORIDE 99 mmol/L (98-107); COR CA(FOR HYPOALB) 10.4 mg/dL (8.5-10.1); COR NA(FOR HYPERGLY) 137 mmol/L (136-145); CREATININE 0.83 mg/dL (0.55-1.02); GLUCOSE 111 mg/dL (65-99); MAGNESIUM 1.8 mg/dL (2.0-2.9); POTASSIUM 3.5 mmol/L (3.5-5.1); SODIUM 137 mmol/L (136-145); TOTAL PROTEIN 6.6 g/dL (6.4-8.2); eGFR NON BLACK RACES > 60 (>60)
[2022-12-17] MEDS ORDERED: CONSULT PHARMACY - POTASSIUM & MAGNESIUM XX SCH (07:00)
[2022-12-17] MEDS ORDERED: TOPROL XL PO ONE (08:11)
[2022-12-17] MEDS: ZYLOPRIM PO SCH (08:16)
[2022-12-17] MEDS: WELLBUTRIN XL 150 MG (DAILY) PO SCH (08:16)
[2022-12-17] MEDS: GLUCOPHAGE XR 24-HR PO SCH ×2 (08:16→20:05)
[2022-12-17] MEDS: TOPROL XL PO SCH (08:16)
[2022-12-17] MEDS: ASPIRIN EC 81 MG PO SCH (08:16)
[2022-12-17] MEDS: ZESTRIL TAB 40 MG PO SCH (08:16)
[2022-12-17] MEDS: NORVASC TAB 5 MG PO SCH (08:16)
[2022-12-17] MEDS: LOVENOX INJ 40 MG SYR SC SCH (08:17)
[2022-12-17] MEDS: MAG-OX TAB PO SCH ×2 (08:17→20:19)
[2022-12-17] MEDS: NS 1,000 ML IV 1,000 ML IV SCH ×4 (11:14→19:13)
[2022-12-17] MEDS: ZOSYN VIAL 3.375 GRAMS 3.375 G in NS 100 ML IV 100 ML IV SCH (11:22)
[2022-12-17] MEDS: MACROBID CAP 100 MG EXT REL PO SCH ×3 (12:50→20:06)
[2022-12-17 19:50] VITALS: PULSE 66; O2SAT 98
[2022-12-17] MEDS: SNACK - Diabetic Appropriate PO SCH (20:19)
[2022-12-18] MEDS: NS 1,000 ML IV 1,000 ML IV SCH (01:06)
[2022-12-18 05:08] LABS: BASOPHILS # (AUTO) 0.1 X10^3/uL (0.0-0.1); BASOPHILS % (AUTO) 1.1 % (0.2-1.0); EOSINOPHILS # (AUTO) 0.5 x10^3/uL (0.0-0.2); EOSINOPHILS % (AUTO) 6.3 % (0.9-2.9); HEMOGLOBIN 10.4 g/dL (12.0-16.0); LYMPHOCYTES # (AUTO) 2.7 X10^3/uL (1.3-2.9); LYMPHOCYTES % (AUTO) 33.8 % (21.0-51.0); MEAN CORPUSCULAR HGB CONC 35.7 g/dL (33.0-35.0); MEAN CORPUSCULAR VOLUME 89.6 fL (80.0-100.0); MEAN PLATELET VOLUME 8.2 fL (7.4-11.0); MONOCYTES # (AUTO) 0.8 x10^3/uL (0.3-0.8); MONOCYTES % (AUTO) 10.2 % (0.0-13.0); NEUTROPHILS # (AUTO) 3.9 x10^3/uL (2.2-4.8); NEUTROPHILS % (AUTO) 48.6 % (42.0-75.0); PLATELET COUNT 699 X10^3/uL (150.0-450.0); RED BLOOD COUNT 3.24 X10^6/uL (3.5-5.4); RED CELL DISTRIBUTION WIDTH 12.9 % (11.6-16.5); WHITE BLOOD COUNT 7.9 X10^3/uL (3.6-10.0)
[2022-12-18 05:15] LABS: ALANINE AMINOTRANSFERASE 21 Units/L (12-78); ALBUMIN 2.1 g/dL (3.4-5.0); ALKALINE PHOSPHATASE 66 Units/L (46-116); ASPARTATE AMINO TRANSFERASE 23 Units/L (15-37); BLOOD UREA NITROGEN 5 mg/dL (7-18); CALCIUM 8.9 mg/dL (8.5-10.1); CARBON DIOXIDE 32.6 mmol/L (21-32); CHLORIDE 100 mmol/L (98-107); COR CA(FOR HYPOALB) 10.4 mg/dL (8.5-10.1); CREATININE 0.66 mg/dL (0.55-1.02); GLUCOSE 97 mg/dL (65-99); POTASSIUM 3.4 mmol/L (3.5-5.1); SODIUM 138 mmol/L (136-145); TOTAL PROTEIN 6.3 g/dL (6.4-8.2); eGFR NON BLACK RACES > 60 (>60)
[2022-12-18] MEDS ORDERED: CONSULT PHARMACY - POTASSIUM & MAGNESIUM XX SCH (06:00)
[2022-12-18 08:52] VITALS: BP 155/76; RESP 18; TEMP 97.8
[2022-12-18] MEDS ORDERED: K-DUR TAB 20 MEQ PO SCH (09:00)
[2022-12-18] MEDS ORDERED: TOPROL XL PO ONE (09:05)
[2022-12-18] MEDS: ZESTRIL TAB 40 MG PO SCH (09:08)
[2022-12-18] MEDS: NORVASC TAB 5 MG PO SCH (09:08)
[2022-12-18] MEDS: LOVENOX INJ 40 MG SYR SC SCH (09:08)
[2022-12-18] MEDS: ZYLOPRIM PO SCH (09:09)
[2022-12-18] MEDS: TOPROL XL PO SCH (09:09)
[2022-12-18] MEDS: WELLBUTRIN XL 150 MG (DAILY) PO SCH (09:09)
[2022-12-18] MEDS: GLUCOPHAGE XR 24-HR PO SCH (09:09)
[2022-12-18] MEDS: ASPIRIN EC 81 MG PO SCH (09:09)
[2022-12-18] MEDS: MACROBID CAP 100 MG EXT REL PO SCH (09:09)
[2022-12-18] MEDS: MAG-OX TAB PO SCH (09:10)
[2022-12-18] MEDS ORDERED: MAG-OX TAB PO SCH (10:00)
== END 2022-12-18 10:50 | disposition home health service (06) | DRG 690 ==
LOC: MED/SURG 15:02
PROVIDERS: ADMIT Obstetrics & Gynecology Obstetrics; ATTEND Obstetrics & Gynecology Obstetrics
DX: B96.1 Klebsiella pneumoniae [K. pneumoniae] as the cause of diseases classified elsewhere; N39.0 Urinary tract infection, site not specified; I10 Essential (primary) hypertension; R26.89 Other abnormalities of gait and mobility; R53.1 Weakness; E11.65 Type 2 diabetes mellitus with hyperglycemia; Z51.89 Encounter for other specified aftercare